=== PATIENT | male | born 1970 | race African-American/Black ===

== ENCOUNTER 2021-01-16 16:16 | Emergency (ER) | payer OTHER, BC ==
[2021-01-16 16:29] VITALS: BP 125/68; PULSE 106; TEMP 98.7; BMI 34.2
[2021-01-16] MEDS ORDERED: ACETAMINOPHEN 325 MG TABLET (FP) PO ONE (17:51)
[2021-01-16] MEDS ORDERED: DIPHTH,PERTUSS(ACELL),TET 0.5 ML DISP.SYRIN IM ONE ×2 (17:51→17:53)
[2021-01-16] MEDS ORDERED: ACETAMINOPHEN 325 MG TABLET (FP) ONE (17:53)
== END 2021-01-16 19:33 | disposition home or self-care (01) ==
LOC: JER 16:16 → JERFT 16:16
PROC: 3E0234Z Introduction of Serum, Toxoid and Vaccine into Muscle, Percutaneous Approach (ICD-10-PCS; principal; 2021-01-16)
DX: S09.90XA Unspecified injury of head, initial encounter (principal)
CPT/HCPCS: 70450-TC; 70486-TC; 90715; 99284-25